=== PATIENT | female | born 1960 | race Caucasian/White ===

== ENCOUNTER → 2019-07-08 | Outpatient (CLI) | payer MEDICARE, OTHER | LOC: M.ULTRA 13:30 → M.RAD 13:40 | DX: N63.23 Unspecified lump in the left breast, lower outer quadrant (principal) ==

== ENCOUNTER → 2019-07-10 | Outpatient (CLI) | payer MEDICARE, OTHER ==
--- NOTE | 2019-07-17 11:07 | PATH ---
[address] [address] PATHOLOGY RPT PROCEDURE Name: LEONOR GOLDMAN [id number] Admission: 07/10/19 Date of : 56 Discharge: Report #: [id number] Path Case #: [id number] [facility] Accession Number: [id number] . 01 Material submitted: . PART A: breast - LEFT BREAST, 5:00 6CM FROM NIPPLE. Modifiers: left PART B: lymph node - LEFT AXILLA NODE. Modifiers: left, axilla . 01 Clinical history: . A. 2.29 x 3.30 x 2.48 cm, 5:00 6 cm from nipple B. 1.65 x 1.58 x 1.34 cm . 02 Diagnosis: A. Left breast, 5:00, 6 cm from nipple, image-guided core biopsies: - INFILTRATING DUCTAL ADENOCARCINOMA, INTERMEDIATE GRADE (II OF III) SPANNING 13 MM. SEE COMMENT. . B. Left axilla node, image-guided core biopsy: - Benign fibrofatty/fibromuscular stroma. See comment. . (JG:ivelisse; 07/12/2019) [facility] 07/12/2019 [facility] . 02 Comment: Specimen A: Specimen type: Image-guided core biopsy Tumor site: Left breast, 5:00, 6 cm from nipple Tumor quantitation: Approximately 90% of submitted tissues Histologic type: Ductal adenocarcinoma Histologic grade: Intermediate grade (II of III) Tubules, nuclei and mitoses: 2, 3, 1 LVSI: Not identified Microcalcifications: Not identified Markers: Breast tumor profile pending Block: A1 . There is no lymphoid tissue in the left axilla node BX (B). Benign smooth muscle suggests the wall of a blood vessel. Breast tumor profile studies are pending on A1 and will be the subject of an addendum report. Specimens A and B reviewed with Dr. Jose Antonio Tello who agrees with the diagnoses. Dr. Allen notified on a.m. of 07/12/2019. (JG:ivelisse; 07/12/2019) . 02 Addendum: . Special studies report received from [facility], [address] [place] [address], [address], [place], [address], on case [id number], labeled with their number [id number], dated 07/16/2019. [place] [address] PATHOLOGY RPT PROCEDURE Name: LEONOR GOLDMAN [facility] [id number] Admission: 07/10/19 Date of : 56 Discharge: Report #: [id number] Path Case #: [id number] Breast/Prognostic Marker Analysis . Specimen Site: Lt Breast,5:00, 6 cm FN, Breast Carcinoma (Biopsy) Specimen ID #: [id number] . ER (Estrogen Receptor) Present/Positive Percent: 98.00% Analysis: Manual Comments: Staining intensity: Strong . RI (Progesterone Receptor) Present/Positive Percent: 95.00% Analysis: Manual Comments: Staining intensity: Moderate to strong . HER2 Not Over-Expressed Score: 1+ Analysis: Manual . Ki-67 Borderline Proliferation Percent: 20.00% Analysis: Manual . Time to Fixation (Cold Ischemic Time): 5 minutes Duration of Fixation: 30.5 hours Type of Fixative: 10% Neutral Buffered Formalin . . at [facility]. Kayleen Rehman M.D. Pathologist . . Methodology The HER2 Receptor protein expression is analyzed using the Imboden HER2 rabbit monoclonal antibody (clone 4B5). This assay is used for diagnostic determination of the HER2 protein over-expression in paraffin embedded, formalin fixed breast cancer tissue on the Imboden Benchmark. The specimen is processed using a secondary antibody-HRP conjugate detection system. The membrane staining of the tumor is determined either by manual score or image analysis. This antibody is intended for in vitro diagnostic use. The score is reported as 0, 1+, 2+, or 3+. This test is used for clinical purposes. [place] [address] PATHOLOGY RPT PROCEDURE Name: LEONOR GOLDMAN Room: [facility]#: [id number] Admission: 07/10/19 Date of : 56 Discharge: Report #: [id number] Path Case #: [id number] A rabbit monoclonal antibody (clone SP1) that recognized the Estrogen Receptor is used to perform immunohistochemistry on routinely fixed (formalin) paraffin embedded tissue on the Imboden Benchmark. The specimen is processed using a secondary antibody-HRP conjugate detection system. The percentage of stained tumor nuclei is determined either manually or by image analysis. This test is intended for in vitro diagnostic use. This test is used for clinical purposes. . A rabbit monoclonal antibody (clone 1E2) that recognized the Progesterone Receptor is used to perform immunohistochemistry on routinely fixed (formalin) paraffin embedded tissue on the Imboden Benchmark. The specimen is processed using a secondary antibody-HRP conjugate detection system. The percentage of stained tumor nuclei is determined either manually or by image analysis. This test is intended for in vitro diagnostic use. This test is used for clinical purposes. . A rabbit monoclonal antibody (clone 30-9) that recognized Ki67 is used to perform immunohistochemistry on routinely fixed (formalin) paraffin embedded tissue on the Imboden Benchmark. The specimen is processed using a secondary antibody-HRP conjugate detection system. The percentage of stained tumor nuclei is determined either manually or by image analysis. This test is intended for in vitro diagnostic use. This test is used for clinical purposes. . Intended Use: This antibody is intended for in vitro diagnostic (IVD) use. HER2 (4B5) is a rabbit monoclonal antibody intended for the semi-quantitative detection of HER2 antigen in sections of formalin-fixed, paraffin embedded normal and neoplastic tissue. . This antibody is intended for in vitro diagnostic (IVD) use. Estrogen Receptor (ER) (SP1) is a rabbit monoclonal antibody (IgG) that is intended for the qualitative detection of estrogen receptor (ER) antigen in sections of formalin-fixed, paraffin-embedded tissue. ER is a rabbit monoclonal antibody that recognizes human estrogen receptor alpha. . This antibody is intended for in vitro diagnostic (IVD) use. Progesterone Receptor (RI) (1E2) is a rabbit monoclonal antibody (IgG) that is intended for the qualitative detection of progesterone receptor (RI) antigen in sections of formalin fixed, paraffin embedded tissue. RI is a rabbit monoclonal antibody that recognizes the A and B forms of the human progesterone receptor. . This antibody is intended for in vitro diagnostic (IVD) use. Ki-67 (30-9) is a rabbit monoclonal antibody (IgG) directed against C-terminal portion of Ki-67 antigen. Staining for Ki-67 can be used to aid in assessing the proliferative activity of normal and neoplastic tissue. Ki-67 is a nuclear protein expressed in proliferating cells. During the cell cycle, the Ki-67 antigen is present in the G1, S, G2 and M phase but is absent in the G0 [place] [address] PATHOLOGY RPT PROCEDURE Name: LEONOR GOLDMAN Room: [facility]#: [id number] Admission: 07/10/19 Date of : 56 Discharge: Report #: [id number] Path Case #: [id number] (quiescent phase). . . Disclaimer: This Test was performed by [facility]. at [address], [address]. . [facility] is a business unit of [employer]. a wholly-owned subsidiary of [employer]. . This assay has not been validated on decalcified tissues. Results should be interpreted with caution if this specimen was decalcified given the likelihood of false negativity on decalcified specimens. . Any image(s) that accompany this report is/are a security systems sales representative image(s) only and should not be used to render a diagnosis. . This interpretation is contingent on the specimen and the clinical information received. . For any special tests/stains performed, known positive cells or tissues are tested with each marker and examined to ensure positivity. Positive and negative internal controls, if present, react appropriately. . This analysis is an adjunct to the evaluation of the referring physician and does not represent a final diagnosis. . The immunohistochemistry tests performed at [facility]. were validated on tissue fixed in 10% neutral buffered formalin. The performance characteristics of the tests performed on tissue processed in other fixatives is not known. . HER2 testing at [facility] is performed in compliance with the 2018 updated ASCO/CAP Clinical Practice Guideline Focused Update. If the result is EQUIVOCAL (2+), it must be confirmed by an alternative assay such as FISH or Dual DELMER. . REF: Dirk BANKS, STARR Luna et al: Human Epidermal Growth Factor Receptor 2 Testing in Breast Cancer: ASCO/CAP Clinical Practice Guideline Focused Update. J Clin Oncol 36:0781-2928, 2018. . HER2 and ER/RI ASCO/CAP guidelines require fixation in neutral buffered formalin for a minimum of 6 and a maximum of 72 hours. Fixation times less than 6 hours may not adequately preserve cell proteins. Fixation times longer than 72 hours may cause excess cross-linking of proteins reducing the antigen available for staining. Either scenario can cause reduced staining; hence false negative results are possible and should be considered for these situations if the HER2 IHC score is less than 3+ [place] [address] PATHOLOGY RPT PROCEDURE Name: LEONOR GOLDMAN Room: [facility]#: [id number] Admission: 07/10/19 Date of : 56 Discharge: Report #: [id number] Path Case #: [id number] ER or RI is negative (no staining or <1% positive). It is recommended that specimens fixed longer than 72 hours with HER2 IHC scores less than 3+ be confirmed by HER2 FISH or Dual DELMER. The time from biopsy/excision to fixation in formalin (cold ischemic time) must be less than 1 hour. Time to fixation (cold ischemic time) greater than 1 hour should be interpreted with caution. HER2 testing, mainly HER2 by FISH, is particularly vulnerable since excessive cold ischemic time results in preferential loss of HER2 probe signals that may lead to false negative results. . SCORE STAINING PATTERN IN TUMOR CELLS INTERPRETATION RESULTS 0 No staining observed or incomplete, faint membrane staining in less than or equal to 10% of tumor cells. Negative 1+ Incomplete, faint membrane staining in greater than 10% of tumor cells. Negative 2+ Weak to moderate complete membrane staining observed in greater than 10% of tumor cells. Equivocal* *Must be confirmed by alternative assay (IHC/FISH/Dual DELMER) 3+ Intense, complete membrane staining in greater than 10% of tumor cells. Positive . A complete copy of the report is on file. . Professional and Technical services performed by [facility]. at [address] [facility] [address], [place] [address]. . (JG:nataliia 07/16/2019) . . LBQ/07/16/2019 Addendum Electronically Signed by Dada Barron MD, Pathologist . 02 Electronically signed: . Dada Barron MD, Pathologist NPI- [id number] . 01 Gross description: . A. The specimen is received in formalin, labeled "Leonor Goldman, left breast 5:00, 6 cm from nipple", are three fibrofatty cores measuring 1.5 cm, 1.3 cm and 1.1 cm in length and up to 0.2 cm in diameter. The specimen is entirely submitted in A1-A3. Specimen excised at: 0925 on 07/10/19, placed in formalin at: 0930 on 07/10/19, formalin exposure: 30.5 [place] [address] PATHOLOGY RPT PROCEDURE Name: LEONOR GOLDMAN Room: [facility]#: [id number] Admission: 07/10/19 Date of : 56 Discharge: Report #: [id number] Path Case #: [id number] . B. The specimen is received in formalin, labeled "Leonor Goldman, left axilla node", are few needle cores and its fragments measuring 0.4 x 0.2 x 0.1 cm in aggregate. The specimen is entirely submitted in B1. ([facility]; 07/10/2019) [facility] 07/11/2019 0744 Local . 02 Pathologist provided ICD-10: C50.911 . 02 CPT . 739694, 305800 Specimen Comment: A courtesy copy of this report has been sent to [phone] Specimen Comment: [phone], Specimen Comment: Report sent to ,DR SKINNER,DR NOVOA / DR SANDHU Specimen Comment: Report sent to Specimen Comment: A duplicate report has been generated due to demographic updates. Performed at: 01 [facility] [address], [place], [place] [address] MD Trace nAderson MD Phone: [phone] Performed at: 02 [facility] [address], [place], [place] [address] MD Dada Barron MD Phone: [phone]
== END ==
LOC: M.ULTRA 08:20
DX: C50.512 Malignant neoplasm of lower-outer quadrant of left female breast (principal); D36.0 Benign neoplasm of lymph nodes

== ENCOUNTER → 2019-07-24 | Outpatient (CLI) | payer MEDICARE, OTHER ==
[2019-07-24 13:55] LABS: CREATININE 1.3 mg/dL (0.6-1.3)
== END ==
LOC: M.LAB 13:24 → M.MRI 14:30
PROVIDERS: Surgery
DX: C50.912 Malignant neoplasm of unspecified site of left female breast (principal); N63.23 Unspecified lump in the left breast, lower outer quadrant

== ENCOUNTER → 2019-08-26 | Day surgery (SDC) | payer MEDICARE, OTHER ==
[2019-08-15 09:00] LABS: HEMATOCRIT 38.5 % (37.0-47.0); HEMOGLOBIN 12.7 gm/dL (12.0-15.0); MPV 7.4 fl. (7.2-11.1); RBC 4.53 mil/uL (4.20-5.00); RDW-CV 15.4 % (10.5-14.5); WBC 8.3 thou/uL (4.0-11.0)
[2019-08-15 09:22] LABS: CALCIUM 8.9 mg/dL (8.5-10.1); CREATININE 1.4 mg/dL (0.6-1.3); POTASSIUM 4.3 mmol/L (3.5-5.1)
--- NOTE | 2019-08-15 12:37 | EKG ---
[place] [address] ELECTROCARDIOGRAM REPORT Name: LEONOR GOLDMAN Room: [facility]#: [id number] Admission: Attend Phys: Terri Garza DO Discharge: Date of : 56 Report #: [id number] THIS REPORT FOR: //name// [facility] Test Date: 2019-08-15 Test Time: 09:08:49 Pat Name: LEONOR GOLDMAN Department: Room: Gender: F Business Support Liaison: CARMELINA : 1960 Requested By: Terri Garza Order Number: [id number] Lisa MD: Wolf Marrufo Measurements Intervals [place] Rate: 86 P: AR: QRS: 130 QRSD: 96 T: 135 QT: 418 QTc: 500 Interpretive Statements Atrial fibrillation Right axis deviation Low voltage, precordial leads Abnormal R-wave progression, late transition Borderline repolarization abnormality Borderline prolonged QT interval No previous ECG available for comparison Electronically Signed On 08-15-2019 12:37:29 PRIOR AUTHORIZATION TECHNICIAN by Wolf Marrufo [email or web address] <ELECTRONICALLY SIGNED> By: Wolf Marrufo MD, [facility] 08/15/19 1237 0908 7 Wolf Marrufo MD, FACC /EPI
[~2019-08-26] VITALS: Ht 160 cm; Wt 104.8 kg
[~2019-08-26] MED LIST: AMARYL2 MG PO; CARVEDILOL12.5 MG PO; ELIQUIS5 MG PO; FUROSEMIDE 40 M40 MG PO; KLOR-CON 1010 MEQ PO; LOTENSIN20 MG PO; METFORMIN HCL1000 MG PO; NEURONTIN100 MG PO; OXYCODONE HCL 55 MG PO; PULMICORT FLEX90 MCG INH; SPIRIVA INH; ULORIC80 MG PO; VENTOLIN HFA 1818 GM INH; ZOCOR40 MG PO
[2019-08-26 07:00] VITALS: BP 133/84
[2019-08-26 11:55] VITALS: BP 133/84
[2019-08-26 12:25] VITALS: BP 133/84
--- NOTE | 2019-08-27 07:24 | OP ---
[address] [address] OPERATIVE REPORT Name: LEONOR GOLDMAN Room: [facility]#: [id number] Admission: 08/26/19 Attend Phys: Terri Garza DO Discharge: Date of : 56 Report #: [id number] THIS REPORT FOR: //name// CC: Terri Morris DO [facility] DICTATED BY: Jez Kamara DO DATE OF SERVICE: 08/26/2019 PREOPERATIVE DIAGNOSIS: Left breast cancer. POSTOPERATIVE DIAGNOSIS: Left breast cancer. SURGEON: Terri Garza DO JUNK DEALER: Jer Kamara, PGY5 OPERATIONS PERFORMED: 1. Left breast lumpectomy with additional margins after the specimen was removed. 2. Left superficial axillary sentinel lymph node dissection. ANESTHESIA: General and local. ESTIMATED BLOOD LOSS: 30 mL. SPECIMENS REMOVED: Left breast mass, a posterior superior margin, a second superior margin and left superficial sentinel lymph node. COMPLICATIONS: None. DISPOSITION: PACU and then likely will be discharged home. DESCRIPTION OF PROCEDURE: After the appropriate consents were obtained, the patient was taken to the operating room, laid in supine position. She had SCDs placed on her bilateral lower extremities and safety strap placed across her lap. She had both arms placed out at her sides. The patient then had all lines placed by Anesthesia. She was sedated and subsequently had a LMA placed. The patient's left breast was then exposed. We started by injecting some Lymphazurin blue in the four quadrants surrounding her areola. The patient also preoperatively today went to Radiology for a nuclear medicine injection in the same area to hopefully isolate a sentinel lymph node. After we injected Lymphazurin blue, we then prepped and draped this patient's left breast and [address] [address] OPERATIVE REPORT Name: LEONOR GOLDMAN Room: [facility]#: [id number] Admission: 08/26/19 Attend Phys: Terri Garza DO Discharge: Date of : 56 Report #: [id number] axilla in a standard sterile fashion. A timeout was performed to correctly identify the patient and procedure. We started by given her some perioperative antibiotics. We then elected to remove the mass, which was located at the inframammary fold on the left breast. This was an easily palpable mass, which appeared to be firm, but did not seem to be fixated to any underlying structures. We started by again performing a timeout to correctly identify the patient and procedure. We began with some 0.5% Marcaine at this site for local anesthesia. Using elliptical incision and a #15 blade scalpel, we made our incision and carried this down to the dermis until we encountered the subcutaneous fat. Using electrocautery, we were able to dissect out the mass, which was once again the left inframammary fold region. We did take this dissection down posteriorly to the inferior pectoralis muscle. We did this circumferentially and the specimen was removed and marked appropriately. We marked the superior edge of the mass using a silk suture and short stitches. We then marked the lateral edge with a long suture. This was passed off as specimen and sent to Radiology to ensure that we had the clip within the specimen. After the radiologist called back to report that the clip was within the specimen, they were concerned about a superior margin, so we elected to take some further tissue along the posterior superior margin. This was done in 2 separate specimens and both of these were marked the same, with short superior and long lateral sutures. This was passed off as specimen to be sent with the breast mass for permanent. We irrigated the pocket copiously and ensured there was no active bleeding. Any bleeding that was occurring was adequately controlled using electrocautery. We placed some Rod within this pocket as well for further hemostasis. It was at this point we turned our attention to the left axilla. Using the nuclear medicine detection device, we were able to identify the uptake at the nipple and then again in the axilla. Uptake at the nipple was approx 5500. We had good uptake at both sites and it was approximately a 10% uptake that we were able to identify in the left axilla. We made our incision along the lateral left pectoralis muscle. This was done using a #15 blade scalpel after we injected some 0.5% Marcaine. We then again carried this down through the subcutaneous tissue and once we were through the subcutaneous, we placed a Weitlaner to further expose the region. We continually checked our nuclear medicine detection device to ensure that we were heading in the right direction. Using blunt dissection with a hemostat, we were able to identify a blue lymph node, which again had good uptake. We circumferentially dissected out a lymph node, which appeared to be a rather large lymph node and possibly a second smaller lymph node just posterior to it. We elected to take both areas which appeared to be 2 lymph nodes adherent to one another. They were dissected out circumferentially using blunt dissection with a hemostat and grasped using an Allis clamp. The lymph node was elevated and removed completely from the left axilla. Uptake out of the axilla was 650. Any bleeding that was occurring was adequately controlled once again using electrocautery. We irrigated this area as well and placed some Rod [address] [address] OPERATIVE REPORT Name: LLUVIA GOLDMANROSE Cintron Room: [facility].#: [id number] Admission: 08/26/19 Attend Phys: Terri Garza DO Discharge: Date of : 56 Report #: [id number] within this pocket. We did not have any further uptake with the nuclear medicine detection device, so we were pleased with our lymph node dissection. This was passed off as specimen as well to be sent to pathology for permanent review. It was at this point, we turned our attention back to our pocket that we had made with the previous breast mass excision. We elected to place a BioZorb within this region for further identification purposes given the patient might need some type of radiation therapy. It also helped to elevate our pocket we had made from our dissection. We placed a 3 x 4 cm BioZorb within this region. It was sutured down to the chest wall using a Vicryl stitch. We then reapproximated the subcutaneous tissue over this area using the same 3-0 Vicryl stitch. We reapproximated the dermis as well. Then, using a running 4-0 Monocryl stitch, we closed the skin in a subcuticular fashion. The left axilla was closed in a similar fashion. We used 3-0 Vicryls to close the subcutaneous as well as the dermis. We then used a 4-0 Monocryl in a running subcuticular fashion to close the skin. Each of these areas were cleaned and dried completely. We used the remainder of the 0.5% Marcaine in these regions as well for local anesthesia. We cleaned and dried these areas completely and placed Mastisol and Steri-Strips as well as gauze and a Tegaderm over each site. All counts were correct x 2 at the end of this procedure. Dr. Garza was present and scrubbed for the entire procedure. The patient was allowed to awaken and subsequently had her LMA removed in the OR. She will be transported to PACU for further recovery and likely to be discharged home later today. <ELECTRONICALLY SIGNED> By: Terri Garza DO 08/27/19 0724 1122 1212Cjesus Garza DO /nt
--- NOTE | 2019-08-29 18:06 | PATH ---
[address] [address] PATHOLOGY RPT PROCEDURE Name: LLUVIA GOLDMANROSE Cintron Room: [facility]#: [id number] Admission: 08/26/19 Date of : 56 Discharge: Report #: [id number] Path Case #: [id number] [facility] Accession Number: [id number] . 01 Material submitted: . PART A: breast - LEFT BREAST MASS. Modifiers: left PART B: lymph node - LEFT AXILLARY SENTINEL NODES. Modifiers: left, axillary tail PART C: breast - ADDITIONAL POSTERIOR MARGIN. Modifiers: left, posterior PART D: breast - ADDITIONAL SUPERIOR MARGIN. Modifiers: superior, left . 01 Clinical history: . Left infiltrating ductal carcinoma . 02 Diagnosis: A. Left breast mass: - INFILTRATING DUCTAL ADENOCARCINOMA, INTERMEDIATE GRADE, SPANNING 44 MM, ASSOCIATED WITH CHANGES OF PRIOR BIOPSY INCLUDING LOCALIZING "SEED", WITH ALL SURGICAL MARGINS FREE OF INVOLVEMENT AND CLOSEST (POSTERIOR) LOCATED 1.5 MM AWAY. - DUCTAL CARCINOMA IN SITU, NUCLEAR GRADE II, SOLID AND CRIBRIFORM TYPES, SPANNING AT LEAST 40 MM, IN ASSOCIATION WITH INFILTRATING TUMOR MASS, WITH ALL SURGICAL MARGINS FREE OF INVOLVEMENT AND CLOSEST (ANTERIOR) LOCATED 5 MM AWAY. - Benign skin and scant benign skeletal muscle at posterior surface. (See comment) . B. Left axillary sentinel nodes: - One benign lymph node with prominent fatty infiltration (0/1). (See comment) . C. Additional posterior margin: - Benign breast tissue and skeletal muscle, negative for atypia. . D. Additional superior margin: - Benign breast tissue with focal apocrine change, negative for atypia. . (JG:mm; 08/29/2019) . . . Surgical Pathology Cancer Case Summary . INVASIVE CARCINOMA OF THE BREAST: Resection . Procedure ___ Excision (less than total mastectomy) [place] [address] PATHOLOGY RPT PROCEDURE Name: LEONOR GOLDMAN Room: [facility]#: [id number] Admission: 08/26/19 Date of : 56 Discharge: Report #: [id number] Path Case #: [id number] ___ Left . + Tumor Site + ___ Not specified . Tumor Size ___ Greatest dimension of largest invasive focus >1 mm (specify exact measurement) (millimeters): 44 mm . Histologic Type ___ Invasive carcinoma of no special type (invasive ductal carcinoma, not otherwise specified) . Histologic Grade (Romeo Histologic Score) . Glandular (Acinar)/Tubular Differentiation ___ Score 3 (<10% of tumor area forming glandular/tubular structures) . Nuclear Pleomorphism ___ Score 2 (cells larger than normal with open vesicular nuclei, visible nucleoli, and moderate variability in both size and shape) . Mitotic Rate ___ Score 2 . Overall Grade ___ Grade 2 (scores of 6 or 7) . + Tumor Focality + ___ Single focus of invasive carcinoma . Ductal Carcinoma In Situ (DCIS) ___ Present + ___ Negative for extensive intraductal component (EIC) . . + Size (Extent) of DCIS + Estimated size (extent) of DCIS is at least (millimeters) 40 mm . + Number of blocks with DCIS: 9 + Number of blocks examined: 44 . + Architectural Patterns + ___ Cribriform + ___ Solid . + Nuclear Grade + ___ Grade II (intermediate) [place] [address] PATHOLOGY RPT PROCEDURE Name: LEONOR GOLDMAN Room: [facility]#: [id number] Admission: 08/26/19 Date of : 56 Discharge: Report #: [id number] Path Case #: [id number] . + Necrosis + ___ Not identified . + Lobular Carcinoma In Situ (LCIS) + ___ No LCIS in specimen . Tumor Extension Skin ___ Skin is present and uninvolved . . Skeletal Muscle ___ Skeletal muscle is free of carcinoma . Margins . Invasive Carcinoma Margins ___ Uninvolved by invasive carcinoma Distance from closest margin (millimeters): ___ Specify 1.5 mm (SEE COMMENT) . + Specify closest margin(s): Posterior . + Distance from other margins (specify millimeter distance including greater than if appropriate): + ___ Anterior: 5 mm . DCIS Margins ___ Uninvolved by DCIS . . Distance from closest margin (millimeters): ___ Specify 5 mm . Specify closest margin(s) (required only if <2mm): Anterior . . Regional Lymph Nodes ___ Uninvolved by tumor cells Total Number of Lymph Nodes Examined: 1 Number of [place] Nodes Examined (if applicable): 1 . + Lymphovascular Invasion + ___ Not identified (SEE COMMENT) . + [place] [address] PATHOLOGY RPT PROCEDURE Name: LEONOR GOLDMAN Room: [facility]#: [id number] Admission: 08/26/19 Date of : 56 Discharge: Report #: [id number] Path Case #: [id number] + ___ Not identified . . PATHOLOGIC STAGE CLASSIFICATION (pTNM, AJCC 8th Edition) Primary Tumor (pT) ___ pT2:Tumor >20 mm but =50 mm in greatest dimension . Regional Lymph Nodes Modifier ___ (sn):[place] node evaluated. . . Regional Lymph Nodes (pN) ___ pN0:No regional lymph node metastasis identified or ITCs only# . + Ancillary Studies . + ___ Breast Biomarker Testing Performed on Previous Biopsy + Testing Performed on , A1 . + Estrogen Receptor (ER) + ___ Positive 98% . . + Progesterone Receptor (PgR) + ___ Positive 95% . . + HER2 (by immunohistochemistry) + ___ Negative (Score 1+) . . + ___ Ki-67 percentage of positive nuclei: 20% . + Microcalcifications + ___ Present in invasive carcinoma + ___ Present in non-neoplastic tissue . . + Clinical History Recent prior left breast 5:00, 6.0 cm from nipple, image-guided core biopsy performed around 07/10/2019 showing infiltrating ductal adenocarcinoma, intermediate grade, spanning 13 mm with left axillary node, image-guided core biopsy showing benign fibrofatty/fibromuscular stroma ([id number]). . (JG:alicia; 08/29/2019) [facility] 08/29/2019 1749 Local . [address] [place] [address] PATHOLOGY RPT PROCEDURE Name: LEONOR GOLDMAN Room: [facility] M.Janak.#: [id number] Admission: 08/26/19 Date of : 56 Discharge: Report #: [id number] Path Case #: [id number] Comment: The closest approach of invasive carcinoma to the posterior margin seen in the lumpectomy specimen (A) is likely of greater distance as additional posterior marginal tissue was also obtained (specimen C). A minute focus is indeterminate for lymphvascular invasion in A8. . Properly-controlled keratin AE1/AE3 immunohistochemical stain performed on B1 shows no evidence of metastatic tumor. . (JG:mml; 08/29/2019) . 02 Electronically signed: . Dada Barron MD, Pathologist NPI- [id number] . 01 Gross description: . A. The specimen is received in formalin, labeled "Leonor Goldman, left breast mass" and consists of an oriented lumpectomy specimen weighing 109 g with 2 long sutures lateral and 2 short sutures superior. Present on the anterior aspect is a pink-garza skin ellipse measuring 6.6 x 2.8 cm. The breast tissue measures 7.3 cm S-I, 7.3 cm L-M, and 3.5 cm A-P, and is inked as follows: superior-blue, inferior-green, medial-red, lateral-yellow, anterior-orange, and posterior-black. It is sectioned from medial to lateral revealing a white-yellow mass measuring 4.4 x 2.1 x 1.7 cm. The mass is 0.7 cm from anterior skin, 0.8 cm from posterior, 1.0 cm from superior, 1.5 cm from inferior, 0.9 cm from medial, greater than 2 cm from lateral, and 0.3 cm from orange inked anterior. Adjacent to the mass is a white seed. The rest of the parenchyma shows yellow homogeneous cut surfaces with scattered fibrous streaks and no additional masses or lesions. [employer] sections are submitted as follows: . A1-A2: Medial, perpendicular A3-A25: entire mass from medial to lateral (A9-A13 full-thickness slice, serially sectioned) A26-A27: Lateral, perpendicular . The specimen was collected at 10 AM on 08/26/2019 and placed in formalin at 10:30 AM. The cold ischemic time is 30 minutes and the total formalin fixation time is greater than 6 hours less than 72 hours. . B. The specimen is received in formalin, labeled "Leonor Goldman, left axillary sentinel lymph nodes" and consists of a segment of pink-yellow tissue measuring 4.1 x 2.8 x 1.0 cm. Sectioning reveals the entire specimen consists of a partially fat replaced lymph node. No additional lymph nodes are identified within the container. The specimen is entirely submitted in B1-B7. . C. The specimen is received in formalin, labeled "Leonor Goldman, additional posterior margin" and consists of an oriented segment of yellow [facility] [address] [place] [address] PATHOLOGY RPT PROCEDURE Name: LEONOR GOLDMAN Room: [facility]#: [id number] Admission: 08/26/19 Date of : 56 Discharge: Report #: [id number] Path Case #: [id number] fibroadipose tissue with 2 long sutures lateral and 2 short sutures superior. The specimen measures 3.5 cm L-M, 2.2 cm S-I, 0.6 cm A-P, and is inked as follows: superior-blue, inferior-green, medial-red, lateral-yellow, anterior-orange, and posterior-black. It is sectioned from medial to lateral revealing no gross lesions and entirely submitted from medial to lateral in C1-C3. . D. The specimen is received in formalin, labeled "Leonor Goldman, additional superior margin" and consists of an oriented segment of yellow fibroadipose tissue with 2 long sutures lateral, and 2 short sutures superior. It measures 5.3 cm L-M, 4.0 cm S-I, 1.5 cm A-P, and is inked as follows: superior-blue, inferior-green, medial-red, lateral-yellow, anterior-orange, and posterior-black. It is sectioned from medial to lateral revealing no gross lesions and entirely submitted from medial to lateral in D1-D14. (SDY; 08/27/2019) SYU/SYU 08/29/2019 1707 Local . 02 Pathologist provided ICD-10: C50.912, D05.12 . 02 CPT . 760972, 663276, 007469, 364160, [id number] Specimen Comment: A courtesy copy of this report has been sent to [phone] Specimen Comment: Report sent to ,DR BEE / DR NOVOA Performed at: 01 [facility] [address], [place], [place] [id number] MD Trace Anderson MD Phone: [phone] Performed at: 02 [facility] [address], [place], [place] [id number] MD Dada Barron MD Phone: [phone]
== END | disposition home or self-care (01) ==
LOC: M.SUR 06:21
PROVIDERS: Surgery
DX: C50.912 Malignant neoplasm of unspecified site of left female breast (principal); N60.82 Other benign mammary dysplasias of left breast; I10 Essential (primary) hypertension; E11.9 Type 2 diabetes mellitus without complications; J44.9 Chronic obstructive pulmonary disease, unspecified; I48.91 Unspecified atrial fibrillation; E78.5 Hyperlipidemia, unspecified; M19.90 Unspecified osteoarthritis, unspecified site; M10.9 Gout, unspecified; Z98.890 Other specified postprocedural states; Z79.899 Other long term (current) drug therapy; Z79.01 Long term (current) use of anticoagulants; Z90.49 Acquired absence of other specified parts of digestive tract; Z88.8 Allergy status to other drugs, medicaments and biological substances

== ENCOUNTER 2019-09-01 02:20 | Emergency (ER) | payer MEDICARE, OTHER ==
[~2019-09-01] VITALS: Ht 162.6 cm; Wt 104.3 kg
[2019-09-01 03:29] LABS: APTT 29.2 Seconds (25.0-31.3); INR 1.1; PROTIME 11.3 Seconds (9.20-11.50)
[2019-09-01 03:38] LABS: ABSOLUTE BASOPHILS 0.1 thou/uL (0.0-0.2); ABSOLUTE EOSINOPHILS 0.6 thou/uL (0.0-0.7); ABSOLUTE LYMPHOCYTES 1.7 thou/uL (0.8-5.3); ABSOLUTE MONOCYTES 0.5 thou/uL (0.0-1.2); ABSOLUTE NEUTROPHILS 5.5 thou/uL (1.6-8.1); BASOPHILS 1.1 %; HEMATOCRIT 30.8 % (37.0-47.0); HEMOGLOBIN 10.4 gm/dL (12.0-15.0); LYMPHOCYTES 20.3 %; MCH 28.3 pg (26.0-34.0); MCHC 33.8 g/dL (28.0-37.0); MCV 83.7 fL (80.0-100.0); MONOCYTES 6.4 %; MPV 8.6 fl. (7.2-11.1); NUCLEATED RBCS 0 /100WBC; PLATELET COUNT* 208 thou/uL (150-400); POLYS 65.2 %; RBC 3.68 mil/uL (4.20-5.00); RDW-CV 15.2 % (10.5-14.5); WBC 8.4 thou/uL (4.0-11.0)
[2019-09-01 03:44] LABS: ALBUMIN 3.8 g/dL (3.4-5.0); CALCIUM 8.4 mg/dL (8.5-10.1); CREATININE 1.5 mg/dL (0.6-1.3); POTASSIUM 4.3 mmol/L (3.5-5.1); TOTAL BILIRUBIN 0.7 mg/dL (<0.1-1.0); TOTAL PROTEIN 7.2 g/dL (6.4-8.2)
[2019-09-01] MEDS ORDERED: OXYCODONE HCL 55 MG PO (05:59)
[2019-09-01 06:59] VITALS: BP 136/82
== END 2019-09-01 07:03 | disposition home or self-care (01) ==
LOC: M.ERS 02:20
PROVIDERS: Personal Emergency Response Attendant
DX: S20.02XA Contusion of left breast, initial encounter (principal); C50.912 Malignant neoplasm of unspecified site of left female breast; I48.91 Unspecified atrial fibrillation; E11.9 Type 2 diabetes mellitus without complications; I10 Essential (primary) hypertension; E78.5 Hyperlipidemia, unspecified; J44.9 Chronic obstructive pulmonary disease, unspecified; M19.90 Unspecified osteoarthritis, unspecified site; Z88.8 Allergy status to other drugs, medicaments and biological substances; Z90.49 Acquired absence of other specified parts of digestive tract; X58.XXXA Exposure to other specified factors, initial encounter; Y93.89 Activity, other specified; Y92.89 Other specified places as the place of occurrence of the external cause; Y99.8 Other external cause status

== ENCOUNTER → 2019-09-04 | Day surgery (SDC) | payer MEDICARE, OTHER ==
[2019-09-04 07:03] LABS: INR 1.1; PROTIME 11.2 Seconds (9.20-11.50)
--- NOTE | 2019-09-04 11:06 | OP ---
[address] [address] OPERATIVE REPORT Name: LEONOR GOLDMAN Room: [facility].#: [id number] Admission: 09/04/19 Attend Phys: Terri Garza DO Discharge: Date of : 56 Report #: [id number] THIS REPORT FOR: //name// CC: Terri Morris DICTATED BY: Jez Kamara DO DATE OF SERVICE: 09/04/2019 PREOPERATIVE DIAGNOSIS: Left breast postop hematoma. POSTOPERATIVE DIAGNOSIS: Left breast postop hematoma. SURGEON: Terri Garza DO FREEZING ROOM WORKER: Jer Kamara, PGY5. OPERATION PERFORMED: Evacuation of left breast hematoma. ANESTHESIA: General and local. ESTIMATED BLOOD LOSS: 5 mL. SPECIMENS REMOVED: None. COMPLICATIONS: None. COMMENTS: Evacuation of a large left breast hematoma that was seen postoperatively as the patient restarted her Xarelto on postop day 2. We removed approximately 500 mL of old blood today from the hematoma cavity. DESCRIPTION OF PROCEDURE: After the appropriate consents were obtained, this patient was taken to the operating room, laid in supine position. She had SCDs placed on bilateral lower extremities and safety strap placed across her lap. The patient had both arms placed out at her side. She had all lines placed by Anesthesia. The patient was sedated and had a LMA placed by the nurse steam locomotive firer/fireman without difficulty. Her left chest was prepped and draped in a standard sterile fashion. A timeout was performed to correctly identify the patient and procedure. She was given perioperative antibiotics at this time. We started with some 0.5% Marcaine at the inferior aspect of the left breast in the inframammary fold. This is where a previous incision was lying. We used a 15 blade scalpel to make our incision over the previous incision. We opened the skin approximately 2 cm in order to insert a Yankauer suction. Upon initial entry into the skin through the subcutaneous tissue, we observed a large amount of old blood. We evacuated approximately 500 mL [place] [address] OPERATIVE REPORT Name: LLUVIA GOLDMANROSE KUMARE Room: [facility].#: [id number] Admission: 09/04/19 Attend Phys: Terri Garza DO Discharge: Date of : 56 Report #: [id number] copiously and broke up any loculations that were present. This allowed the breast to decompress nicely. There was a lot less tension on the skin after performing this procedure. We placed a 10-Ukrainian drain within the cavity in order to help keep it decompressed. We also used some FloSeal to act as a further hemostatic agent. The skin was closed using a 3-0 Vicryl stitch in an inverted interrupted fashion. The skin was further closed using a 4-0 Monocryl suture in an inverted interrupted fashion. The patient's left breast was cleaned and dried adequately. We placed Dermabond over the incision to act as a dressing and to avoid tape on the patient's skin. We placed an ABD over the incision to help with relieving some of the pressure. We also placed the patient in a tight fitting bra to add compression and some fluffs were added to her left breast in order to add some additional compression. All counts were correct x 2 at the end of this procedure. Dr. Garza was present and scrubbed entire procedure. <ELECTRONICALLY SIGNED> By: Terri Garza DO 09/04/19 1106 0923 0943Chkumar Garza DO /nt
== END | disposition home or self-care (01) ==
LOC: M.SUR 06:05
PROVIDERS: Surgery
DX: L76.82 Other postprocedural complications of skin and subcutaneous tissue (principal); Z85.3 Personal history of malignant neoplasm of breast; I10 Essential (primary) hypertension; E11.9 Type 2 diabetes mellitus without complications; I48.91 Unspecified atrial fibrillation; J44.9 Chronic obstructive pulmonary disease, unspecified; M10.9 Gout, unspecified; E78.5 Hyperlipidemia, unspecified; Z98.890 Other specified postprocedural states; Z79.899 Other long term (current) drug therapy; Z90.49 Acquired absence of other specified parts of digestive tract; Z88.8 Allergy status to other drugs, medicaments and biological substances; Z79.01 Long term (current) use of anticoagulants

== ENCOUNTER → 2019-10-16 | Outpatient (CLI) | payer MEDICARE, OTHER | LOC: M.WC 08:00 | DX: T81.89XA Other complications of procedures, not elsewhere classified, initial encounter (principal); S20.122A Blister (nonthermal) of breast, left breast, initial encounter; S20.121A Blister (nonthermal) of breast, right breast, initial encounter; C50.512 Malignant neoplasm of lower-outer quadrant of left female breast; I48.21 Permanent atrial fibrillation; I83.90 Asymptomatic varicose veins of unspecified lower extremity; I10 Essential (primary) hypertension; E11.9 Type 2 diabetes mellitus without complications; E78.5 Hyperlipidemia, unspecified; J44.9 Chronic obstructive pulmonary disease, unspecified; M10.9 Gout, unspecified; Z90.49 Acquired absence of other specified parts of digestive tract; X58.XXXA Exposure to other specified factors, initial encounter; Y93.89 Activity, other specified; Y99.8 Other external cause status; Y92.89 Other specified places as the place of occurrence of the external cause; Y83.8 Other surgical procedures as the cause of abnormal reaction of the patient, or of later complication, without mention of misadventure at the time of the procedure ==

== ENCOUNTER → 2019-10-23 | Outpatient (CLI) | payer MEDICARE, OTHER | LOC: M.WC 04:53 | DX: T81.89XD Other complications of procedures, not elsewhere classified, subsequent encounter (principal); S20.12 Blister (nonthermal) of breast; C50.512 Malignant neoplasm of lower-outer quadrant of left female breast; E78.5 Hyperlipidemia, unspecified; I83.90 Asymptomatic varicose veins of unspecified lower extremity; I48.21 Permanent atrial fibrillation; I10 Essential (primary) hypertension; M10.9 Gout, unspecified; J44.9 Chronic obstructive pulmonary disease, unspecified; Z85.3 Personal history of malignant neoplasm of breast; X58.XXXD Exposure to other specified factors, subsequent encounter; Y83.8 Other surgical procedures as the cause of abnormal reaction of the patient, or of later complication, without mention of misadventure at the time of the procedure ==

== ENCOUNTER → 2019-10-30 | Outpatient (CLI) | payer MEDICARE, OTHER | LOC: M.WC 04:18 | DX: T81.89XD Other complications of procedures, not elsewhere classified, subsequent encounter (principal); S20.12 Blister (nonthermal) of breast; C50.512 Malignant neoplasm of lower-outer quadrant of left female breast; I48.21 Permanent atrial fibrillation; I10 Essential (primary) hypertension; I48.91 Unspecified atrial fibrillation; I83.90 Asymptomatic varicose veins of unspecified lower extremity; E78.5 Hyperlipidemia, unspecified; J44.9 Chronic obstructive pulmonary disease, unspecified; M10.9 Gout, unspecified; X58.XXXD Exposure to other specified factors, subsequent encounter; Y83.8 Other surgical procedures as the cause of abnormal reaction of the patient, or of later complication, without mention of misadventure at the time of the procedure ==

== ENCOUNTER → 2019-11-06 | Outpatient (CLI) | payer MEDICARE, OTHER | LOC: M.WC 03:37 | DX: T81.89XD Other complications of procedures, not elsewhere classified, subsequent encounter (principal); S20.12 Blister (nonthermal) of breast; C50.512 Malignant neoplasm of lower-outer quadrant of left female breast; E78.5 Hyperlipidemia, unspecified; I48.91 Unspecified atrial fibrillation; I10 Essential (primary) hypertension; I83.90 Asymptomatic varicose veins of unspecified lower extremity; I48.21 Permanent atrial fibrillation; J44.9 Chronic obstructive pulmonary disease, unspecified; M10.9 Gout, unspecified; Z85.3 Personal history of malignant neoplasm of breast; Y83.8 Other surgical procedures as the cause of abnormal reaction of the patient, or of later complication, without mention of misadventure at the time of the procedure ==

== ENCOUNTER → 2019-11-13 | Outpatient (CLI) | payer MEDICARE, OTHER | LOC: M.WC 05:02 | DX: T81.89XD Other complications of procedures, not elsewhere classified, subsequent encounter (principal); S20.12 Blister (nonthermal) of breast; C50.512 Malignant neoplasm of lower-outer quadrant of left female breast; E11.9 Type 2 diabetes mellitus without complications; E78.5 Hyperlipidemia, unspecified; I10 Essential (primary) hypertension; I83.90 Asymptomatic varicose veins of unspecified lower extremity; I48.21 Permanent atrial fibrillation; J44.9 Chronic obstructive pulmonary disease, unspecified; M10.9 Gout, unspecified; X58.XXXD Exposure to other specified factors, subsequent encounter; Y83.8 Other surgical procedures as the cause of abnormal reaction of the patient, or of later complication, without mention of misadventure at the time of the procedure ==

== ENCOUNTER → 2020-04-01 | Outpatient (CLI) | payer MEDICARE, OTHER | LOC: M.ULTRA 13:30 | PROVIDERS: ATTEND Surgery | DX: N64.59 Other signs and symptoms in breast (principal) ==

== ENCOUNTER → 2020-07-23 | Outpatient (CLI) | payer MEDICARE, OTHER | LOC: M.RAD 09:39 | PROVIDERS: ATTEND Radiology Radiation Oncology | DX: C50.512 Malignant neoplasm of lower-outer quadrant of left female breast (principal) ==

== ENCOUNTER → 2020-11-05 | Outpatient (CLI) | payer MEDICARE, OTHER | LOC: M.ULTRA 13:00 | PROVIDERS: ATTEND Internal Medicine Nephrology | DX: M81.0 Age-related osteoporosis without current pathological fracture (principal); N18.32 Chronic kidney disease, stage 3b ==